=== PATIENT | female | born 1970 | race Two or more races ===

== ENCOUNTER → 2016-10-02 | Outpatient (CLI) | payer OTHER ==
--- NOTE | 2016-10-02 08:01 | RAD ---
Exam performed: Bilateral lower extremity venous Doppler. Clinical Indication: Bilateral lower extremity swelling and pain Date of Service:10/02/16 Comparison : None available Discussion: Multiple longitudinal and transverse high resolution real-time images of the venous system of bilateral lower extremity were obtained with color and Doppler sampling and spectral analysis. The common femoral, superficial femoral, popliteal and proximal calf veins are all patent and demonstrate normal flow and compressibility. Normal respiratory phasicity and augmentation is present. Impression: Normal color duplex ultrasound of the venous system of bilateral lower extremity.
== END | disposition home or self-care (01) ==
LOC: US 07:10
PROVIDERS: ATTEND Family Medicine
DX: I87.2 Venous insufficiency (chronic) (peripheral) (principal); M79.89 Other specified soft tissue disorders
CPT/HCPCS: 93970

== ENCOUNTER → 2016-11-01 | Outpatient (CLI) | payer OTHER ==
--- NOTE | 2016-11-01 16:04 | CARD ---
APPROVED REPORT EXAM: Two-dimensional and M-mode echocardiogram with Doppler and color Doppler. Other Information Quality : GoodHR: 97bpm Rhythm : NSR INDICATION Murmur Leg edema RISK FACTORS Hypertension Obesity 2D DIMENSIONS RVDd2.1 (2.9-3.5cm)Left Atrium(2D)3.1 (1.6-4.0cm) IVSd0.9 (0.7-1.1cm)Aortic Root(2D)2.5 (2.0-3.7cm) LVDd3.7 (3.9-5.9cm)LVOT Diameter2.0 (1.8-2.4cm) PWd0.8 (0.7-1.1cm)LVDs2.7 (2.5-4.0cm) FS (%) 27.2 %SV30.8 ml LVEF(%)53.8 (>50%) Aortic Valve AoV Peak Farhad.143.0cm/sAoV VTI26.5cm AO Peak GR.8.2mmHgLVOT Peak Farhad.104.1cm/s AO Mean GR.5mmHgAVA (VMAX)2.29cm2 Mitral Valve MV E Khsxkqmd31.8cm/sMV E Peak Gr.4mmHg MV DECEL [id number] A Aiysitnw498.4cm/s MV E Mean Gr.2mmHgE/A Ratio0.9 MV A [id number] Pulmonary Valve PV Peak Phwmojwf22.0cm/s Pulmonary Vein S1 Nacckiht03.3cm/sD2 Bmsrubib15.2cm/s PVa [id number] LEFT VENTRICLE The left ventricle is normal size. There is normal left ventricular wall thickness. The left ventricu lar systolic function is normal and the ejection fraction is within normal range. The Ejection Fracti on is 50-55%. There is normal LV segmental wall motion. Transmitral Doppler flow pattern is Grade I-a bnormal relaxation pattern. RIGHT VENTRICLE The right ventricle is normal size. There is normal right ventricular wall thickness. The right ventr icular systolic function is normal. ATRIA The left atrium size is normal. The right atrium size is normal. The interatrial septum is intact wit h no evidence for an atrial septal defect or patent foramen ovale as noted on 2-D or Doppler imaging. AORTIC VALVE The aortic valve is not well visualized but appears to open adequately. Doppler and Color Flow reveal ed no significant aortic regurgitation. There is no significant aortic valvular stenosis. MITRAL VALVE The mitral valve is normal in structure and function. There is no evidence of mitral valve prolapse. There is no mitral valve stenosis. Doppler and Color Flow revealed trace mitral valve regurgitation. TRICUSPID VALVE Doppler and Color Flow revealed no tricuspid valve regurgitation noted. PULMONIC VALVE The pulmonary valve is not well visualized but appears to open adequately. Doppler and Color Flow rev ealed no pulmonic valvular regurgitation. There is no pulmonic valvular stenosis by spectral Doppler. GREAT VESSELS The aortic root is normal in size. The ascending aorta is normal in size. The pulmonary artery is nor mal. The IVC is normal in size and collapses >50% with inspiration. PERICARDIAL EFFUSION There is no evidence of significant pericardial effusion. Critical Notification Critical Value: No <Conclusion> The left ventricle is normal size. The left ventricular systolic function is normal and the ejection fraction is within normal range. The Ejection Fraction is 50-55%. There is normal left ventricular wall thickness. There is no significant aortic valvular stenosis. Doppler and Color Flow revealed no significant aortic regurgitation. Doppler and Color Flow revealed trace mitral valve regurgitation. Doppler and Color Flow revealed no tricuspid valve regurgitation noted.
== END | disposition home or self-care (01) ==
LOC: ECHO 10:45
PROVIDERS: ATTEND Internal Medicine Cardiovascular Disease
DX: I34.0 Nonrheumatic mitral (valve) insufficiency (principal); R01.1 Cardiac murmur, unspecified; R60.0 Localized edema
CPT/HCPCS: 93306